=== PATIENT | female | born 2000 | race Caucasian/White ===

== ENCOUNTER 2022-02-08 09:14 | Outpatient (CLI) | payer BC, MEDICAID, SELFPAY ==
--- NOTE | 2022-02-08 10:29 | US_ITS ---
WS: [id number] LIMITED OBSTETRICAL ULTRASOUND HISTORY: UTERINE SIZE DATE DISCREPANCY-3RD TRIMESTER COMPARISON: None available. Presentation: Vertex. Cervix: Closed and normal length. Approximately 4.2 cm in length. Placenta: Posterior, no previa or abruption. Grade: 1 HEART: FHR of 144 BPM. measurements: BPD = 9.1 cm = 37w0d HC = 33.8 cm = 38w6d AC = 33.1 cm = 37w0d FL = 7.4 cm = 37w5d Biometry is internally concordant. OWEN: 9.9 cm EFW: 3182 g; 53rd %. AGA by ultrasound: 37w5d FABIENNE by ultrasound: 02/24/2022 US/US OB limited [id number] IMPRESSION: 1. Single intrauterine gestation of 37 weeks 5 days with an EDC of 02/24/2022. No growth asymmetry. No prior studies for comparison. 2. Low normal amniotic fluid index. Recommend short-term follow-up. The larges t vertical pocket of amniotic fluid is 3.4 cm.
== END 2022-02-08 09:15 | disposition home or self-care (01) ==
LOC: RAD 09:21
PROVIDERS: Visit Provider Family Medicine
DX: O26.843 Uterine size-date discrepancy, third trimester (principal); Z3A.37 37 weeks gestation of pregnancy; O41.03X0 Oligohydramnios, third trimester, not applicable or unspecified
CPT/HCPCS: 76815

== ENCOUNTER 2022-02-10 12:00 | Outpatient (CLI) | payer BC, MEDICAID, SELFPAY ==
[2022-02-10 12:00] VITALS: BMI 23.3
[2022-02-10 12:27] VITALS: BP 116/75; PULSE 121
[2022-02-10 12:48] VITALS: BP 113/76; PULSE 102
[2022-02-10 13:08] VITALS: BP 113/81; PULSE 88
[2022-02-10 13:10] VITALS: BP 113/81; PULSE 88
[2022-02-10 14:04] LABS: Nitrazine Paper, PH Negative
== END 2022-02-10 13:10 | disposition home or self-care (01) ==
LOC: OPOB 12:02 → OBGYN 12:09
PROVIDERS: Visit Provider Family Medicine
DX: O26.899 Other specified pregnancy related conditions, unspecified trimester (principal); Z3A.00 Weeks of gestation of pregnancy not specified; N89.8 Other specified noninflammatory disorders of vagina
CPT/HCPCS: 59025; 83986; 99211

== ENCOUNTER 2022-02-14 13:23 | Outpatient (CLI) | payer BC, MEDICAID, SELFPAY ==
[2022-02-14 13:35] VITALS: RESP 16; BMI 23.2
[2022-02-14 13:40] VITALS: BP 117/76; PULSE 104; TEMP 36.3
--- NOTE | 2022-02-14 13:50 | US_ITS ---
WS: [id number] BIOPHYSICAL PROFILE AMNIOTIC FLUID HISTORY: BPP with OWEN, for decreased movement COMPARISON: 02/08/2022 Cardiac activity: 133 bpm. Cervix: Difficult to visualize but appears closed measuring 3.2 cm in length. Placenta: Posterior, no previa or abruption. Placenta grade: 2 Parameters are as follows: Breathin Movement: 2 Tone: 2 Fluid volume: 2 Amniotic fluid index: 11.9 cm which is between the fifth and 50th percentiles. Very minimally improve d since the prior study. Largest vertical pocket is 5.3 cm. US/US OB BPP wo NST [id number] IMPRESSION: 1. Biophysical profile score: 8/8. 2. Minimal improvement in the amniotic fluid index. Visually the amount of amni otic fluid does appear appropriate.
[2022-02-14 14:00] VITALS: BP 115/72; PULSE 91
[2022-02-14 15:08] LABS: Actim Prom Negative
== END 2022-02-14 15:30 | disposition home or self-care (01) ==
LOC: OPOB 13:31 → OBGYN 13:32
PROVIDERS: Visit Provider Family Medicine
DX: O36.8190 Decreased fetal movements, unspecified trimester, not applicable or unspecified (principal); Z3A.00 Weeks of gestation of pregnancy not specified
CPT/HCPCS: 59025; 76819; 84112; 99211

== ENCOUNTER 2022-02-19 09:13 | Inpatient (IN) | payer BC, MEDICAID, SELFPAY ==
[2022-02-19] VITALS (18 sets, daily range): BP systolic 112–129; BP diastolic 59–82; PULSE 80–139; RESP 16–17; TEMP 36.2–36.8
[2022-02-19 06:37] LABS: Basophils # 0.1 10^3/uL (0.0-0.1); Basophils % 0.4 %; Eosinophils # 0.1 10^3/uL (0.0-0.8); Eosinophils % 0.4 %; Hematocrit 37.6 % (37.0-47.0); Lymphocytes # 2.7 10^3/uL (1.5-6.5); Mean Corpuscular HGB Conc 31.9 g/dL (30.0-36.0); Mean Corpuscular Hemoglobin 27.8 pg (28.0-34.0); Mean Platelet Volume 12.4 fL (7.4-10.4); Monocytes # 0.8 10^3/uL (0.2-0.9); Neutrophils % 73.6 %; Nucleated Red Blood Cells % 0 %; Platelet Count 211 10^3/cmm (130-400); Red Blood Count 4.32 10^6/uL (4.1-5.3); Red Cell Distribution Width 12.9 % (12.1-15.1)
[2022-02-19] MEDS: dextrose 5%-lactated ringers 1,000 ML 125 ML IV (06:40)
[2022-02-19] MEDS: ampicillin 2,000 MG in sodium chloride 0.9% (plus) 50 ML 100 MG IV (06:40)
--- NOTE | 2022-02-19 06:41 | PM.OBGYHP ---
Providers/Chief Complaint Admitting Physician: Aniya Bernard DO Primary PUMPER HEAD: Aniya Bernard DO Chief Complaint: Possible ROM, Contractions HPI PUMPER HEAD History of Present Illness Maren Worley is a 21 year old female at 40w3d by 8wk US not consistent with LMP. complicated by low pre- BMI- weight gain and growth US have been normal during . Otherwise negative PMHx and surgical hx. Presenting for ROM around 0100. Contractions as well started at approx 0100. She woke up due to contractions and went to the bathroom -reports her underwear was soaking and continued to have LOF. Contractions have been stronger since presening to L&D. No vaginal bleeding. Good movement. Present Details : 2 Para: 0 Date of Last Menstrual Period: 04/21/21 Calculated Date of Delivery: 01/26/22 Gestational Age Based on Last Menstrual Period: 43 Dating criteria OB: based on 1st trimester US only care: good care Abnormal OB US findings: 07/12/21: 8w5d by CRL dating US 09/29/21: Normal anatomy scan, posterior left lateral placenta 12/26/21: Normal interval growth- EFW 1977g 39%, cephalic, normal amniotic fluid 02/08/22: follow-up growth with normal growth, low normal OWEN 9.9 with SDP 3.4cm, EFW 3182g, 53% 02/14/22: OWEN wnl at 11.3, BPP 8/8 Other Details: Low prepregnancy BMI Labs Blood type OB HPI: A (-) negative Rubella: Immune RPR: Negative GBS: Positive HBsAG: Negative Other Lab Information: Antibody screen neg initial Repeat ab screen neg 11/30/21 GC/Chlamydia neg Hep C neg HIV neg Hgb/Hct 12.1/36.4 on 06/21/21 Hgb/Hct 10.9/32.7 on 11/30/21 1hr GTT 126 s/p rhogam on 11/30/21 Review of Systems General: Reports: 10 or more systems reviewed and unremarkable except in HPI and below Medications/Allergies Home Medications Medication Instructions Recorded Confirmed Last Taken Type vit no.133-ferrous 1 tab PO DAILY 02/10/22 02/14/22 02/13/22 21:00 History fumarate 28 mg-folic acid 800 mcg tablet () famotidine 20 mg tablet (Pepcid) 20 mg PO BID 02/14/22 02/14/22 02/14/22 08:30 History Allergies Allergy/AdvReac Type Severity Reaction Status Date / Time No Known Allergies Allergy Verified 02/10/22 13:44 PFSH PUMPER HEAD PFSH: Medical History (Updated 02/19/22 @ 08:22 by Aniya Bernard DO) Low BMI Social History Smoking and tobacco status: former smoker Quit status (tobacco): has quit using tobacco Alcohol intake: former Substance/Drug Use: never Adopted: Yes Highest education level completed: High School Graduate Other Female Reproductive History: Hx Age of Menarche: 12 Duration of menses: 6-7 days Cycle Length: 30 days Menstrual flow: normal/abnormal: normal History History History 2 Term 0 Miscarriages/Ectopic 1 0 Living Children 0 Other History: 09/2020 elective AB- pills Care FABIENNE Calculator Estimated Delivery Date Method Current WG Current Estimate 02/16/22 Ultrasound #1 40w 3d Vitals/I&O/Wt Last Vital Signs Pulse 96 02/19/22 06:08 BP 125/82 02/19/22 06:08 Physical Exam Narrative: EFM: Baseline 135, +accel, mod variability, no decels Category 1 FHT [place]: irregular ctx q 3-5 min Const: COMMON NORMALS: no acute distress, healthy appearing and alert Resp: COMMON NORMALS: normal respiratory effort and clear to auscultation bilaterally Cardio: COMMON NORMALS: regular rate, regular rhythm, S1 normal heart sound present and S2 normal heart sound present : OTHER: Initial SVE per nursin/90/+1 Extremity: COMMON NORMALS: no pedal edema Psych: COMMON NORMALS: mental status grossly normal, Normal thought process present, cooperative and normal affect Skin: COMMON NORMALS: no rashes or lesions noted Data : 02/19/22 06:20 A&P Assessment and plan (1) Active labor at term: Admit for labor. Anticipate . Status: Acute (2) Rupture of membranes with clear amniotic fluid: SROM at approx 0100 Status: Acute (3) Positive GBS test: Start GBS ppx- ampicillin 2g and 1g q4hr following until delivery Status: Acute Attestations Medical Necessity Statement*: Maren Worley's hospital stay will require greater than 2 midnights for labor and delivery of term . Coding Level of Care Code Acute Construction Safety Consultant for Chg Fwd Exam Detailed Diagnoses Active labor at term Rupture of membranes with clear amniotic fluid Positive GBS test B95.1
[2022-02-19] MEDS: ondansetron 2 mg/ML SDV 2 mL 4 MG IVP (08:34)
[2022-02-19] MEDS: lidocaine 2% INJ 20 mL INJECTION (11:30)
--- NOTE | 2022-02-19 12:11 | P.PCNOB_ITS ---
Delivery Note: Date of delivery: February 19, 2022 Pre-delivery diagnoses: 21yo at 40w3d by 8wk US not consistent with LMP Low pre- BMI GBS positive Post-delivery diagnoses: Term delivery of female via spontaneous vaginal delivery Low pre- BMI GBS positive- s/p 2 doses ampicillin Procedure: Spontaneous Vaginal Delivery Delivering Physician: Aniya Bernard DO Estimated blood loss (mL): 400 Pre-Delivery Course: Presented with SROM and contractions starting at approx 0100. SVE /+1 on presentation to L&D. Patient admitted and GBS ppx started with ampicillin. Progressed to by approx 0800. Remained at with irregular ctx q3-6 minutes. Remained Category 1 FHT. SVE at approx 1019, forebag felt on SVE- decision for AROM with maternal consent- moderate amount of clear fluid. FHT noted to be Category 1 following AROM. Delivery: Patient progressed to complete and was placed in lithotomy position. Patient pushed with adequate maternal effort. Head delivered in FABIAN position, Loose nuchal cord was present and reduced. Shoulders and rest of body delivered without difficulty with no anesthesia. Noted to be with loose body cord as well. Mouth and nares bulb suctioned. Cord clamped and cut after 1 minute delay. placed on maternal abdomen for routine resuscitation. Placenta and membranes spontaneously delivered with gentle traction and noted to be intact. Fundus was noted to be firm. The vagina and cervix were inspected and bilateral first degree vaginal sulcus lacerations were noted, also with right labial laceration continuous with right 1st degree sulcus laceration. Right 1st degree noted to be bleeding- repaired with 3-0 vicryl and local anesthesia with approx 8cc 2% lidocaine. Noted to be hemostatic following repair. Left vaginal sulcus laceration noted to be hemostatic and not requiring repair. Fundus was again noted to be firm. Male born at 11:25am with 8/9 weighing 3410g and measuring 20 i nches in length Placenta noted to be intact with centrally inserted umbilical cord with 3 vessels noted. Complications: Maternal -none- left to recover in stable condition Infant- none- routine resuscitation only required- left to recover in stable condition History History History 2 Term 0 Miscarriages/Ectopic 1 0 Living Children 0 Coding Level of Care Code Acute Agricultural Engineering Technicians for Chg Fwd
[2022-02-19] MEDS: ibuprofen 800 mg tablet PO ×2 (15:59→22:07)
[2022-02-19] MEDS: docusate sodium 100 mg Capsule PO (18:01)
[2022-02-20 01:16] LABS: Hematocrit 30.1 % (37.0-47.0); Hemoglobin 9.8 g/dL (11.5-15.3); Mean Corpuscular HGB Conc 32.6 g/dL (30.0-36.0); Mean Corpuscular Hemoglobin 27.8 pg (28.0-34.0); Mean Corpuscular Volume 85.3 fl (81-99); Mean Platelet Volume 12.1 fL (7.4-10.4); Platelet Count 158 10^3/cmm (130-400); Red Blood Count 3.53 10^6/uL (4.1-5.3); White Blood Count 11.3 10^3/uL (4.5-13.0)
[2022-02-20 02:00] VITALS: BP 108/60; PULSE 75; TEMP 36.7
[2022-02-20 04:15] VITALS: BP 111/72; PULSE 80; RESP 16; TEMP 36.8
--- NOTE | 2022-02-20 06:04 | PM.OBGYPN ---
TUBE AND MANIFOLD BUILDER Subjective Subjective: Interval history: Patient is PPD#1 s/p . She has been ambulating well without pain. Has been eating and drinking without nausea or vomiting. Passing gas and bowel movement without issue. Urinating well, does have some burning with urination. Bleeding is minimal- thin lochia. Denies passage of any clots. Denies leg/calf pain or swelling. is going well, baby did want to eat almost constantly in the evening yesterday she reports. Pain is well controlled on oral medications. Discussed again her medications- she reports famotidine and vitamins only. Denies any illicit drug use or other supplements during . Does report nicotine use and vaping in the first 1-2 months of but quit and hasn't used nicotine since then. Post /CS: baby status: doing well (nursing does note some irritability in baby this AM ) feeding status: breast and bottle feeding Vitals/I&O/Wt Last Vital Signs Temp 97.9 F 02/19/22 22:05 Pulse 81 02/19/22 22:02 Resp 17 02/19/22 18:00 BP 115/59 02/19/22 22:02 02/19/22 02/19/22 02/20/22 14:59 22:59 06:59 Intake Total Output Total 999 Balance -973 / -973 -999 Physical Exam Const: COMMON NORMALS: no acute distress, healthy appearing and alert Resp: COMMON NORMALS: normal respiratory effort and clear to auscultation bilaterally AUSCULTATION: clear to auscultation bilaterally Cardio: COMMON NORMALS: regular rate, regular rhythm, S1 normal heart sound present, S2 normal heart sound present and No murmurs present (Cardio) RATE: regular rate RHYTHM: regular rhythm HEART SOUNDS: S1 normal heart sound present and S2 normal heart sound present GI: COMMON NORMALS: Soft to palpation and non-tender PALPATION: Yes Soft to palpation : OTHER: Uterine fundus is firm and below the umbilicus Extremity: NARRATIVE EXTREMITY EXAM: No calf pain, no LE or pedal edema noted Neuro: SENSORIUM/ORIENTATION: Yes alert Psych: COMMON NORMALS: mental status grossly normal and cooperative Data : 02/20/22 00:52 A&P Assessment and plan (1) Spontaneous vaginal delivery: Status: Acute (2) Anemia: Status: Acute Plan 21yo [id number] PPD#1 s/p uncomplicated . Doing well. Continue routine care. Encourage ambulation and regular diet. Hgb has decreased to 9.8 from 12.0 yesterday- no s/sx of anemia. Start daily iron supplement. Recheck in AM. Anticipate discharge PPD#2. Attestations Medical Necessity Statement*: Maren Meir's hospital stay will require greater than 2 midnights for labor and delivery and care. Coding Level of Care Code Acute Carton Packaging Machine Operator for Chg Fwd Diagnoses Spontaneous vaginal delivery O80 Anemia D64.9
[2022-02-20] MEDS: ibuprofen 800 mg tablet PO ×3 (09:59→20:53)
[2022-02-20] MEDS: prenatal vitamin Capsule 1 CAP PO (09:59)
[2022-02-20] MEDS: docusate sodium 100 mg Capsule PO (09:59)
[2022-02-20 11:02] LABS: Amphetamines Screen Urine Negative (Negative); Barbiturates Screen Urine Negative (Negative); Benzodiazepines Screen Urine Negative (Negative); Cocaine Screen Urine Negative (Negative); Opiate Screen Urine Negative (Negative); PCP Screen Urine Negative (Negative); THC Screen Urine Negative (Negative)
[2022-02-20 11:41] VITALS: BP 131/89; PULSE 80; RESP 16; TEMP 37.1
[2022-02-20 17:44] VITALS: BP 119/78; RESP 18
[2022-02-20 22:00] VITALS: BP 125/80; PULSE 102; RESP 15; TEMP 36.6
[2022-02-21 04:03] VITALS: BP 117/74; PULSE 79; TEMP 36.7
[2022-02-21 04:55] LABS: Basophils % 0.3 %; Eosinophils # 0.2 10^3/uL (0.0-0.8); Eosinophils % 1.6 %; Hematocrit 36.2 % (37.0-47.0); Hemoglobin 11.6 g/dL (11.5-15.3); Lymphocytes # 2.9 10^3/uL (1.5-6.5); Lymphocytes % 28.3 %; Mean Corpuscular Hemoglobin 28.1 pg (28.0-34.0); Mean Corpuscular Volume 87.7 fl (81-99); Mean Platelet Volume 11.8 fL (7.4-10.4); Monocytes # 0.5 10^3/uL (0.2-0.9); Monocytes % 4.6 %; Neutrophils # 6.68 10^3/uL (1.8-8.0); Neutrophils % 64.7 %; Nucleated Red Blood Cells % 0 %; Platelet Count 179 10^3/cmm (130-400); Red Blood Count 4.13 10^6/uL (4.1-5.3); Red Cell Distribution Width 13.2 % (12.1-15.1); White Blood Count 10.3 10^3/uL (4.5-13.0)
--- NOTE | 2022-02-21 07:52 | PM.OBGYDC ---
Discharge Providers ORTHODONTIC TECHNICIAN ASSISTANT Date of Admission: 02/19/22 09:13 Date of Discharge: 02/21/22 Attending Provider at Admission: Aniya Bernard DO Attending Provider at Discharge: Aniya Bernard DO Primary ORTHODONTIC TECHNICIAN ASSISTANT: Aniya Bernard Diagnoses at Discharge Discharge Diagnosis (1) Spontaneous vaginal delivery: Status: Acute Reason for Visit Reason for Visit: Possible ROM, Contractions Hospital Course Hospital Course Date of delivery: February 19, 2022 ? Pre-delivery diagnoses: 21yo at 40w3d by 8wk US not consistent with LMP Low pre- BMI GBS positive? Post-delivery diagnoses: Term delivery of female via spontaneous vaginal delivery Low pre- BMI GBS positive- s/p 2 doses ampicillin? Procedure: Spontaneous Vaginal Delivery ? Delivering Physician: Aniya Bernard DO ? Estimated blood loss (mL): 400 Pre-Delivery Course:?? Presented with SROM and contractions starting at approx 0100. SVE 790/+1 on presentation to L&D. Patient admitted and GBS ppx started with ampicillin. Progressed to /+1 by approx 0800. Remained at 9//+1 with irregular ctx q3-6 minutes. Remained Category 1 FHT. SVE /+1 at approx 1019, forebag felt on SVE- decision for AROM with maternal consent- moderate amount of clear fluid. FHT noted to be Category 1 following AROM. Delivery:?? Patient progressed to complete and was placed in lithotomy position. Patient pushed with adequate maternal effort. Head delivered in FABIAN position, Loose nuchal cord was present and reduced. Shoulders and rest of body delivered without difficulty with no anesthesia. Noted to be with loose body cord as well. Mouth and nares bulb suctioned. Cord clamped and cut after 1 minute delay. Infant placed on maternal abdomen for routine resuscitation. Placenta and membranes spontaneously delivered with gentle traction and noted to be intact. Fundus was noted to be firm. The vagina and cervix were inspected and bilateral first degree vaginal sulcus lacerations were noted, also with right labial laceration continuous with right 1st degree sulcus laceration. Right 1st degree noted to be bleeding- repaired with 3-0 vicryl and local anesthesia with approx 8cc 2% lidocaine. Noted to be hemostatic following repair. Left vaginal sulcus laceration noted to be hemostatic and not requiring repair. Fundus was again noted to be firm. Male born at 11:25am with 8/9 weighing 3410g and measuring 20 inches in length Placenta noted to be intact with centrally inserted umbilical cord with 3 vessels noted. Complications: Maternal -none- left to recover in stable condition ? - none- routine resuscitation only required- left to recover in stable condition 21yo G2 now P1011 underwent spontaneous vaginal delivery on 02/19/22 of term male . course was uncomplicated. Following delivery patient ambulated well, tolerated a normal diet without nausea or vomiting. Pain was well-controlled on PO medications, exclusively well, no leg/calf pain, no calf/leg swelling, normal urination, passing gas without bowel movement yet. Vaginal bleeding thin lochia and decreasing. Hgb decreased to 9.8 on 02/20/22 from 12.0 on admission. Recheck hemoglobin on PPD#2 on 02/21/22 was improved at 11.6. control was discussed and patient prefers OCPs- plan to start at 2 week outpatient visit. Follow-up planned for 2 and 6 weeks . Patient to call office for appointment time and date. Warning signs for endometritis, pre-eclampsia, DVT/PE, mastitis were reviewed, discussed additional warning signs including increased vaginal bleeding, worsening abdominal pain. Pelvic rest and activity precautions reviewed as well. She is discharged on 02/21/22 in stable condition. Information Peripartum Data: Infant Delivery Method: Vaginal Physical Exam Const: COMMON NORMALS: no acute distress, healthy appearing and alert Resp: COMMON NORMALS: normal respiratory effort and clear to auscultation bilaterally AUSCULTATION: clear to auscultation bilaterally Cardio: COMMON NORMALS: regular rate, regular rhythm and No murmurs present (Cardio) RATE: regular rate RHYTHM: regular rhythm GI: COMMON NORMALS: Normal to inspection, nondistended, normoactive bowel sounds present, Soft to palpation and non-tender PALPATION: Yes Soft to palpation : UTERUS PALPATION: Yes Other OB uterine findings (uterine fundus firm and below umbilicus, non-tender ) Extremity: COMMON NORMALS: no clubbing, cyanosis or edema, no calf tenderness and no pedal edema Neuro: SENSORIUM/ORIENTATION: Yes alert Psych: COMMON NORMALS: mental status grossly normal, Normal thought process present and cooperative THOUGHT PROCESS: Normal thought process present History History History 2 Term 1 Miscarriages/Ectopic 1 0 Living Children 1 Discharge Data Studies Completed and Pending Laboratory Results WBC 10.3 10^3/uL (4.5-13.0) 02/21/22 04:16 RBC 4.13 10^6/uL (4.1-5.3) 02/21/22 04:16 Hgb 11.6 g/dL (11.5-15.3) 02/21/22 04:16 Hct 36.2 % (37.0-47.0) L 02/21/22 04:16 MCV 87.7 fl (81-99) 02/21/22 04:16 MCH 28.1 pg (28.0-34.0) 02/21/22 04:16 MCHC 32.0 g/dL (30.0-36.0) 02/21/22 04:16 RDW 13.2 % (12.1-15.1) 02/21/22 04:16 Plt Count 179 10^3/cmm (130-400) 02/21/22 04:16 MPV 11.8 fL (7.4-10.4) H 02/21/22 04:16 Neut % (Auto) 64.7 % 02/21/22 04:16 Lymph % (Auto) 28.3 % 02/21/22 04:16 [place] % (Auto) 4.6 % 02/21/22 04:16 Eos % (Auto) 1.6 % 02/21/22 04:16 Baso % (Auto) 0.3 % 02/21/22 04:16 Neut # (Auto) 6.68 10^3/uL (1.8-8.0) 02/21/22 04:16 Lymph # (Auto) 2.9 10^3/uL (1.5-6.5) 02/21/22 04:16 [place] # (Auto) 0.5 10^3/uL (0.2-0.9) 02/21/22 04:16 Eos # (Auto) 0.2 10^3/uL (0.0-0.8) 02/21/22 04:16 Baso # (Auto) 0.0 10^3/uL (0.0-0.1) 02/21/22 04:16 Nucleated RBC % (auto) 0 % 05/10/22 04:16 Nucleated RBCs # 0.0 /100WBC 02/21/22 04:16 Urine Opiates Screen Negative ng/mL (Negative) 02/20/22 Unknown Ur Barbiturates Screen Negative ng/mL (Negative) 02/20/22 Unknown Ur Phencyclidine Scrn Negative ng/mL (Negative) 02/20/22 Unknown Ur Amphetamines Screen Negative ng/mL (Negative) 02/20/22 Unknown U Benzodiazepines Scrn Negative ng/mL (Negative) 02/20/22 Unknown Urine Cocaine Screen Negative ng/mL (Negative) 02/20/22 Unknown U Marijuana (THC) Screen Negative ng/mL (Negative) 02/20/22 Unknown Vitals Last Vital Signs Temp 98.0 F 02/21/22 04:03 Pulse 79 02/21/22 04:03 Resp 15 02/20/22 22:00 BP 117/74 02/21/22 04:03 Discharge Plan Discharge Patient Disposition: Home Condition: Stable Prescriptions: New ibuprofen 800 mg Tablet 800 mg PO TID PRN (Reason: Pain, Mild) Qty: 60 0RF Continued 28-800 mg-mcg Tablet 1 tab PO DAILY 0RF Discontinued famotidine [Pepcid] 20 mg Tablet 20 mg PO BID 0RF Discharge Orders: Discharge Order (Routine); Ordered 02/21/22 Ordered By: Aniya Bernard Referrals: Aniya Bernard DO [Physician] - 2 weeks Discharge Diet: Regular Discharge Activity: Increase activity as tolerated Patient Instructions: Depression (DC), Bleeding (DC), Preeclampsia and Eclampsia After Delivery (GEN), OB Discharge Report, OB Food/Drug Interaction Guide, OB Care at Home, Opioid Safety, OB Vaginal Deliveries Activity Restrictions/Additional Instructions: Pelvic rest for 6 weeks. Follow-up with Dr. Bernard in clinic in 2 weeks and at 6 weeks. Discharge Attestations ORTHODONTIC TECHNICIAN ASSISTANT Time Spent in Discharge Care*: greater than 30 min Coding Level of Care Code Acute Clarifying Plant Operator for Chg Fwd Diagnoses Spontaneous vaginal delivery O80
[2022-02-21] MEDS: ibuprofen 800 mg tablet PO (08:31)
[2022-02-21] MEDS: iron complex forte Capsule 1 EACH PO (08:31)
[2022-02-21] MEDS: prenatal vitamin Capsule 1 CAP PO (08:31)
[2022-02-21] MEDS: docusate sodium 100 mg Capsule PO (08:31)
--- NOTE | 2022-02-21 08:43 | PC.NURSE ---
No IV at this time.
[2022-02-21 09:25] VITALS: BP 107/70; PULSE 78; RESP 16; TEMP 36.8; O2SAT 95
[2022-02-21 14:45] VITALS: BP 117/79; PULSE 78; RESP 16; TEMP 36.9; O2SAT 97
== END 2022-02-21 14:45 | disposition home or self-care (01) | DRG 807 ==
LOC: OPOB 09:13 → OBGYN 09:13
PROVIDERS: Admitting Provider Family Medicine; Visit Provider Family Medicine
DX: O99.02 Anemia complicating childbirth (principal); Z37.0 Single live birth; D64.9 Anemia, unspecified; O99.824 Streptococcus B carrier state complicating childbirth; Z3A.40 40 weeks gestation of pregnancy; Z87.891 Personal history of nicotine dependence
CPT/HCPCS: 12345; 36415; 59025; 59409; 80306; 83986; 85025; 85027; 99211; J0290; J2405